=== PATIENT | female | born 2000 | race African-American/Black ===

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

== ENCOUNTER 2023-01-07 16:24 | Emergency (ER) | payer MEDICAID ==
[~2023-01-07 16:24] MED LIST changes: +FERR325T6 MT; +IBUP-2028 MT
== END 2023-01-07 19:03 | disposition left against medical advice (07) ==
LOC: ER 16:24
DX: Z53.21 Procedure and treatment not carried out due to patient leaving prior to being seen by health care provider (principal)
CPT/HCPCS: 99281

== ENCOUNTER 2023-01-11 12:43 | Emergency (ER) | payer MEDICAID ==
[~2023-01-11] VITALS: Ht 170.2 cm; Wt 55.0 kg
[2023-01-11 12:47] VITALS: BP 104/63; PULSE 116; RESP 18; TEMP 98.6; O2SAT 98
[2023-01-11] MEDS ORDERED: IBUP-2029 MT (13:43)
== END 2023-01-11 14:41 | disposition home or self-care (01) ==
LOC: ER 12:43
DX: S43.101A Unspecified dislocation of right acromioclavicular joint, initial encounter (principal); W01.0XXA Fall on same level from slipping, tripping and stumbling without subsequent striking against object, initial encounter; Y93.89 Activity, other specified; Y92.89 Other specified places as the place of occurrence of the external cause; Y99.8 Other external cause status
CPT/HCPCS: 73030; 99283